=== PATIENT | male | born 1990 | race Caucasian/White ===

== ENCOUNTER 2020-01-30 22:24 | Emergency (ER) | payer OTHER ==
[2020-01-30] MEDS ORDERED: TORAdol 30 mg Injection IM ONE (22:38)
[2020-01-30] MEDS ORDERED: Rocephin 1000 MG INJ IM ONE (22:38)
--- NOTE | 2020-01-30 22:42 | ERPHSYRPT ---
- History of Present Illness Time Seen by Provider: 01/30/20 22:39 Source: patient Physician History: 29-year-old male came to the emergency room with the pain in his both molar tooth started yesterday. Patient recently moved into the town and has no dentist. His pain got worse so he came to the emergency room. He denies any other symptoms. Timing/Duration: today Severity: moderate Associated Symptoms: denies symptoms Allergies/Adverse Reactions: No Known Drug Allergies Allergy (Unverified 01/30/20 22:33) - Review of Systems Constitutional: No Symptoms Eyes: No Symptoms Ears, Nose, & Throat: Loose Teeth Respiratory: No Symptoms Cardiac: No Symptoms Abdominal/Gastrointestinal: No Symptoms Genitourinary Symptoms: No Symptoms Musculoskeletal: No Symptoms Skin: No Symptoms - Physical Exam General Appearance: no apparent distress Eye Exam: PERRL/EOMI Ears, Nose, Throat Exam: normal ENT inspection, other (swollen gums) Neck Exam: normal inspection Respiratory Exam: normal breath sounds Cardiovascular Exam: regular rate/rhythm - Course Nursing assessment & vital signs reviewed: Yes Ordered Tests: Medication Summary Discontinued Medications Generic Name Dose Route Start Last Admin Trade Name Valerio PRN Reason Stop Dose Admin Ceftriaxone Sodium 1,000 mg 01/30/20 22:38 Rocephin 1000 Mg Inj IM 01/30/20 22:39 STAT ONE Ketorolac Tromethamine 60 mg 01/30/20 22:38 Toradol 30 Mg Injection IM 01/30/20 22:39 STAT ONE - Progress Progress: unchanged, pain not gone completely Counseled pt/family regarding: diagnosis, need for follow-up (with dentist) - Departure Departure Disposition: Home Clinical Impression: Abscess, dental Condition: Stable Critical Care Time: No Referrals: ELENITA ROMAN II [Primary Care Provider] - Instructions: Tooth Abscess (DC) Prescriptions: Amoxicillin 500 mg Cap [Amoxil 500 mg] 500 mg PO TID #30 capsule Naproxen 375 mg [Naprosyn 375 mg] 375 mg PO Q8H #30 tablet
[2020-01-30] MEDS ORDERED: TORAdol 30 mg Injection ONE (22:48)
[2020-01-30] MEDS ORDERED: Rocephin 1000 MG INJ ONE (22:48)
[2020-01-30 23:27] VITALS: BP 124/86; PULSE 82; O2SAT 98
== END 2020-01-30 23:24 | disposition home or self-care (01) ==
LOC: ED 22:24
DX: L02.91 Cutaneous abscess, unspecified (principal)
CPT/HCPCS: 96372; 99284; J0696; J1885

== ENCOUNTER 2021-05-31 19:21 | Emergency (ER) | payer OTHER ==
[2021-05-31] MEDS ORDERED: TORAdol 30 mg Injection IV ONE (19:35)
[2021-05-31] MEDS ORDERED: TORAdol 30 mg Injection ONE (19:45)
[2021-05-31 19:52] LABS: Absolute Neutrophil Ct (ANC) 4.76 (1.4-6.9); Basophil (Absolute #) 0.04 (0-0.4); Eosinophil (Absolute #) 0.18 (0-0.5); Hematocrit 46.2 % (42-50); Hemoglobin 15.4 gm/dl (12.5-18.0); Lymphocyte (Absolute #) 3.19 (1.0-4.6); Lymphocytes % 35.2 % (24.0-44.0); Mean Cell Volume 87.2 fl (78-100); Mean Corpuscular Hemoglobin 29.1 pg (26-32); Mean Corpuscular Hgb Concent. 33.3 g/dl (32-36); Mean Platelet Volume 11.1 fl (7.5-11.0); Monocyte (Absolute #) 0.89 (0.0-1.3); Monocytes % 9.8 % (0.0-12.0); Neutrophil % 52.6 % (36.0-66.0); Platelet Count 292 K/mm3 (150-450); Red Cell Distribution Width 14.3 % (11.5-14.0); White Blood Count 9.1 K/mm3 (4.0-10.5)
[2021-05-31 19:56] LABS: Hyaline Casts 0-2 /LPF (0-2); Mucus SLIGHT /HPF (NEGATIVE)
[2021-05-31 19:57] LABS: Appearance CLEAR (CLEAR); Bilirubin NEGATIVE (NEGATIVE); Dipstick done @ ? MAIN LAB; Glucose NEGATIVE (NEGATIVE); Ketones NEGATIVE (NEGATIVE); Nitrite NEGATIVE (NEGATIVE); Protein,Urine Dip NEGATIVE (Negative); RBC TRACE-INTACT Ery/ul (0-5); Specific Gravity >=1.030 (1.005-1.025); Urobilinogen 0.2 mg/dL (0-1)
[2021-05-31 20:03] LABS: ALBUMIN 4.4 g/dL (3.5-5.0); ALKALINE PHOSPHATASE 91 U/L (38-126); ANION GAP 12.1 MEQ/L (5-15); BLOOD UREA NITROGEN 13 mg/dL (9-20); CHLORIDE 106 mmol/L (98-107); Calcium 8.5 mg/dL (8.4-10.2); Carbon Dioxide 28 mmol/L (22-30); Creatinine 1 0.88 mg/dL (0.66-1.25); EST GLOMERULAR FILTRATION RATE > 60.0 ML/MIN; Glucose 108 mg/dL (74-106); Potassium 3.9 mmol/L (3.5-5.1); SGOT/AST 30 U/L (17-59); SGPT/ALT 25 U/L (0-50); SODIUM 142 mmol/L (137-145); Total Protein 7.5 g/dL (6.3-8.2)
--- NOTE | 2021-05-31 20:49 | ERPHSYRPT ---
- History of Present Illness Time Seen by Provider: 05/31/21 19:35 Historian: patient Exam Limitations: no limitations Patient Subjective Stated Complaint: rt flank pain Triage Nursing Assessment: pt c/o rt flank pain which started today around 1600. Pt has vomited 3 times since pain began. Pt has chronic diarrhea. Abd lg, obese, soft with active bsx4 quad, nontender on palpation. Physician History: Patient is a 31-year-old male presents to our ED with acute onset of right flank pain that started approximately 1600. Pain described as an ache that is localized. No radiation. Pain was severe and patient vomited 3 times. Patient admits to history of chronic diarrhea. No trauma. No fever. Symptoms are moderate in intensity. No specific worsening improving factors. Patient denies obvious hematuria. Patient is otherwise healthy. He voices no other complaints or concerns at this time. Timing/Duration: today Activities at Onset: none Quality: aching Abdominal Pain Onset Location: flank (Right flank) Pain Radiation: no radiation Severity of Pain-Max: moderate Severity of Pain-Current: moderate Modifying Factors: Improves With: nothing Associated Symptoms: nausea, vomiting, No back, No diaphoresis, No fever/chills, No headache, No shortness of breath, No weakness Previous symptoms: no prior history Allergies/Adverse Reactions: No Known Drug Allergies Allergy (Verified 05/31/21 19:39) Hx Tetanus, Diphtheria Vaccination/Date Given: No (unknown) Hx Influenza Vaccination/Date Given: No Hx Pneumococcal Vaccination/Date Given: No Immunizations Up to Date: No Travel Risk - International Travel Have you traveled outside of the country in past 3 weeks: No - Coronavirus Screening Are you exhibiting any of the following symptoms?: Yes Symptoms: Vomiting/Diarrhea Close contact with a COVID-19 positive Pt in past 14-21 Days: No - Vaccine Status Have you recieved a Covid-19 vaccination: No - Review of Systems Constitutional: No Symptoms, No Fever, No Chills Eyes: No Symptoms Ears, Nose, & Throat: No Symptoms Respiratory: No Symptoms, No Cough, No Dyspnea Cardiac: No Symptoms, No Chest Pain, No Edema, No Syncope Abdominal/Gastrointestinal: No Symptoms, No Abdominal Pain, No Nausea, No Vomiting, No Diarrhea Genitourinary Symptoms: No Symptoms, No Dysuria Musculoskeletal: No Symptoms, No Back Pain, No Neck Pain Skin: No Symptoms, No Rash Neurological: No Symptoms, No Dizziness, No Focal Weakness, No Sensory Changes Psychological: No Symptoms Endocrine: No Symptoms Hematologic/Lymphatic: No Symptoms Immunological/Allergic: No Symptoms All Other Systems: Reviewed and Negative - Past Medical History Pertinent Past Medical History: Yes Endocrine Medical History: Hypothyroidism Musculoskeletal History: Fractures GI Medical History: GERD Other Medical History: Obesity - Past Surgical History Past Surgical History: Yes Neuro Surgical History: No Pertinent History Cardiac: No Pertinent History Respiratory: No Pertinent History Gastrointestinal: No Pertinent History Genitourinary: No Pertinent History Musculoskeletal: No Pertinent History Male Surgical History: No Pertinent History - Social History Smoking Status: Never smoker Exposure to second hand smoke: Yes Drug Use: marijuana Patient Lives Alone: No - Nursing Vital Signs Nursing Vital Signs: Initial Vital Signs Temperature 97.5 F 05/31/21 19:28 Pulse Rate 70 05/31/21 19:28 Respiratory Rate 22 05/31/21 19:28 Blood Pressure 144/79 05/31/21 19:28 O2 Sat by Pulse Oximetry 97 05/31/21 19:28 Pain Scale Pain Intensity 4 - Physical Exam General Appearance: no apparent distress, alert Eye Exam: PERRL/EOMI, eyes nml inspection Ears, Nose, Throat Exam: normal ENT inspection, TMs normal, pharynx normal, moist mucous membranes Neck Exam: normal inspection, non-tender, supple, full range of motion Respiratory Exam: normal breath sounds, lungs clear, airway intact, No respiratory distress Cardiovascular Exam: regular rate/rhythm, normal heart sounds, normal peripheral pulses Gastrointestinal/Abdomen Exam: soft, normal bowel sounds, No tenderness, No mass Male Genitalia Exam: No testicular tenderness Back Exam: normal inspection, normal range of motion, No CVA tenderness, No vertebral tenderness Extremity Exam: normal inspection, normal range of motion, pelvis stable Neurologic Exam: alert, oriented x 3, cooperative, normal mood/affect, nml cerebellar function, sensation nml, No motor deficits Skin Exam: normal color, warm, dry Lymphatic Exam: No adenopathy SpO2 Interpretation: normal SpO2: 97 O2 Delivery: Room Air - Course Nursing assessment & vital signs reviewed: Yes - CT Exams Abdomen/Pelvis CT Interpretation: Tele-radiologist Report (1 to 2 mm distal right ureteral stone just proximal to the UVJ without hydronephrosis or hydroureter) Ordered Tests: Active Orders 24 hr Category Date Time Status ABDOMEN AND PELVIS W/0 CONTRAS [CT] Stat Exams 05/31/21 19:33 Taken CBC W DIFF Stat Lab 05/31/21 19:48 Completed CMP Stat Lab 05/31/21 19:48 Completed Medication Summary Discontinued Medications Generic Name Dose Route Start Last Admin Trade Name Valerio PRN Reason Stop Dose Admin Ketorolac Tromethamine 30 mg 05/31/21 19:35 05/31/21 19:46 Ketorolac Tromethamine 30 Mg/Ml Inj IV 05/31/21 19:36 30 mg STAT ONE Administration Ketorolac Tromethamine Confirm 05/31/21 19:45 Ketorolac Tromethamine 30 Mg/Ml Inj Administered 05/31/21 19:46 Dose 30 mg .ROUTE .STK-MED ONE Lab/Rad Data: Laboratory Result Diagrams 05/31/21 19:48 05/31/21 19:48 Laboratory Results 05/31/21 05/31/21 05/31/21 Range/Units 19:48 19:48 19:30 WBC 9.1 (4.0-10.5) K/mm3 RBC 5.30 (4.1-5.6) M/mm3 Hgb 15.4 (12.5-18.0) gm/dl Hct 46.2 (42-50) % MCV 87.2 (78-100) fl MCH 29.1 (26-32) pg MCHC 33.3 (32-36) g/dl RDW 14.3 H (11.5-14.0) % Plt Count 292 (150-450) K/mm3 MPV 11.1 H (7.5-11.0) fl Gran % 52.6 (36.0-66.0) % Eos # (Auto) 0.18 (0-0.5) Absolute Lymphs (auto) 3.19 (1.0-4.6) Absolute Monos (auto) 0.89 (0.0-1.3) Lymphocytes % 35.2 (24.0-44.0) % Monocytes % 9.8 (0.0-12.0) % Eosinophils % 2.0 (0.00-5.0) % Basophils % 0.4 (0.0-0.4) % Absolute Granulocytes 4.76 (1.4-6.9) Basophils # 0.04 (0-0.4) Sodium 142 (137-145) mmol/L Potassium 3.9 (3.5-5.1) mmol/L Chloride 106 (98-107) mmol/L Carbon Dioxide 28 (22-30) mmol/L Anion Gap 12.1 (5-15) MEQ/L BUN 13 (9-20) mg/dL Creatinine 0.88 (0.66-1.25) mg/dL Estimated GFR > 60.0 ML/MIN Glucose 108 H (74-106) mg/dL Calcium 8.5 (8.4-10.2) mg/dL Total Bilirubin 0.80 (0.2-1.3) mg/dL AST 30 (17-59) U/L ALT 25 (0-50) U/L Alkaline Phosphatase 91 (38-126) U/L Serum Total Protein 7.5 (6.3-8.2) g/dL Albumin 4.4 (3.5-5.0) g/dL Urinalys Dipstick Clnc MAIN LAB Urine Color YELLOW (YELLOW) Urine Appearance CLEAR (CLEAR) Urine pH 6.0 (5-6) Ur Specific [place] >=1.030 (1.005-1.025) POC Urine Protein Conf NEGATIVE (Negative) Urine Ketones NEGATIVE (NEGATIVE) Urine Nitrite NEGATIVE (NEGATIVE) Urine Bilirubin NEGATIVE (NEGATIVE) Urine Urobilinogen 0.2 (0-1) mg/dL Urine Leukocytes NEGATIVE (NEGATIVE) Urine WBC (Auto) NONE (0-5) /HPF Urine RBC (Auto) 3-5 (0-2) /HPF U Hyaline Cast (Auto) 0-2 (0-2) /LPF U Epithel Cells (Auto) NONE (FEW) /HPF Urine Bacteria (Auto) NONE (NEGATIVE) /HPF Urine RBC TRACE-INTACT (0-5) Joe/ul Urine Mucus (Auto) SLIGHT (NEGATIVE) /HPF Ur Culture Indicated? NO Urine Glucose NEGATIVE (NEGATIVE) mg/dL - Progress Progress: improved Progress Note: Patient reassessed. Pain significantly improved. Patient is now comfortable. Patient rates his pain 4 out of 10 but states that he does not require any more pain medication. CAT scan reveals a right 1 to 2 mm distal kidney stone without hydronephrosis or hydroureter. Kidney function is within normal limits. Urinalysis reveals no urinary tract infection. No indication for further work- up at this time. Will discharge home. Patient given a referral to Dr. Llanos urology. Patient given a urine strainer as well. Patient advised to drink plenty of fluids. Patient will make an attempt to collect the stone as it passes through. A prescription for Toradol was forwarded to patient's pharmacy. A prescription for Flomax was forwarded to patient's pharmacy as well. Mother at bedside. They voiced no other complaints or concerns at this time. Patient states he is ready for discharge. Patient agrees to follow-up with his urologist within 48 hours for evaluation. Portions of this note were created with voice recognition technology. There may be grammatical, spelling, punctuation or sound alike errors 05/31/21 21:03 Counseled pt/family regarding: lab results, diagnosis, need for follow-up, rad results - Departure Departure Disposition: Home Clinical Impression: Ureterolithiasis, Renal colic on right side Condition: Stable Critical Care Time: No Referrals: ELENITA ROMAN II [Primary Care Provider] - Follow up/PCP as directed JUAN LLANOS [COURTESY STAFF] - Follow up/PCP as directed Instructions: Kidney Stones (DC) Additional Instructions: Discharge/Care Plan SIMONA BEACH was seen on 05/31/21 in the Emergency Room. The patient was counseled regarding Diagnosis,Lab results, Imaging studies, need for follow up and when to return to the Emergency Room. Prescriptions given: Discharge Note I have spoken with the patient and/or caregivers. I have explained the patient's condition, diagnosis and treatment plan based on the information available to me at this time. I have answered the patient's and/or caregiver's questions and addressed any concerns. The patient and/or caregivers have as good understanding of the patient's diagnosis, condition and treatment plan as can be expected at this point. The vital signs have been stable. The patient's condition is stable and appropriate for discharge from the emergency department. The patient will pursue further outpatient evaluation with the primary care physician or other designated or consulting physician as outlined in the discharge instructions. The patient and/or caregivers are agreeable to this plan of care and follow-up instructions have been explained in detail. The patient and/or caregivers have received these instruction. The patient/and or caregivers are aware that any significant change in condition or worsening of symptoms sh ould prompt an immediate return to this or the closest emergency department or call 911. Prescriptions: Tamsulosin HCl 0.4 mg [Flomax 0.4 MG] 0.4 mg PO DAILY 14 Days #14 cap
[2021-05-31 21:07] VITALS: BP 169/59
[2021-05-31 21:10] VITALS: PULSE 78; O2SAT 98
--- NOTE | 2021-06-01 08:48 | XRAY ---
Indication: Right flank/right lower quadrant pain. Nausea and vomiting. Nephrolithiasis. Multiple contiguous axial images obtained through the abdomen and pelvis without contrast using renal stone protocol. Comparison: None Lung bases clear. Heart not enlarged. Distal right ureter demonstrates 1-2 mm calculus just proximal to UVJ with minimal hydronephrosis. No free fluid/air. Noncontrasted stomach and bowel loops appear nonobstructed with normal appendix. Incidental 22.5 cm fatty hepatomegaly and 16.6 cm splenomegaly. Remaining liver, gallbladder, pancreas, spleen, adrenal glands, kidneys, ureters, bladder, and aorta are unremarkable for noncontrast exam. Osseous structures intact. Impression: 1. 1-2 mm distal right ureter calculus as detailed. 2. Fatty hepatomegaly and splenomegaly.
== END 2021-05-31 21:07 | disposition home or self-care (01) ==
LOC: ED 19:21
DX: N20.1 Calculus of ureter (principal); N20.0 Calculus of kidney; R10.9 Unspecified abdominal pain; R11.2 Nausea with vomiting, unspecified; K21.9 Gastro-esophageal reflux disease without esophagitis
CPT/HCPCS: 36000; 36415; 74176; 80053; 81015; 85025; 96374; 99284; J1885

== ENCOUNTER 2024-01-06 02:27 | Emergency (ER) | payer OTHER ==
[2024-01-06 02:44] VITALS: RESP 20; TEMP 97.2
--- NOTE | 2024-01-06 02:44 | ERPHSYRPT ---
- History of Present Illness Source: patient Exam Limitations: no limitations Physician History: Patient had injury to his right knee. Is a twisting injury. He has pain in the lateral aspect around the lateral collateral ligament on the right. No obvious deformities. He is able to ambulate. It happened about 12 to 15 hours ago. The pain is did not get any better. He was concerned about work as well 2. He is been rest ice and elevate it is helping somewhat. Pain is moderate to severe at walking and standing. It is mild to moderate at rest. Movement and palpation make the symptoms worse. Rest ice and elevate makes it better. Allergies/Adverse Reactions: No Known Drug Allergies Allergy (Verified 05/31/21 19:39) Hx Tetanus, Diphtheria Vaccination/Date Given: No (unknown) Hx Influenza Vaccination/Date Given: No Hx Pneumococcal Vaccination/Date Given: No - Review of Systems Constitutional: No Symptoms Eyes: No Symptoms Ears, Nose, & Throat: No Symptoms Skin: No Symptoms Neurological: No Symptoms All Other Systems: Reviewed and Negative - Past Medical History Pertinent Past Medical History: Yes Neurological History: No Pertinent History Cardiac History: No Pertinent History Respiratory History: No Pertinent History Endocrine Medical History: Hypothyroidism Musculoskeletal History: Fractures GI Medical History: GERD Other Medical History: Obesity - Past Surgical History Past Surgical History: Yes Neuro Surgical History: No Pertinent History Cardiac: No Pertinent History Respiratory: No Pertinent History Gastrointestinal: No Pertinent History Genitourinary: No Pertinent History Musculoskeletal: No Pertinent History Male Surgical History: No Pertinent History - Social History Smoking Status: Never smoker Exposure to second hand smoke: Yes Drug Use: marijuana Patient Lives Alone: No - Nursing Vital Signs Nursing Vital Signs: Initial Vital Signs Temperature 97.2 F 01/06/24 02:41 Pulse Rate 68 01/06/24 02:41 Respiratory Rate 20 01/06/24 02:41 Blood Pressure 130/85 01/06/24 02:41 O2 Sat by Pulse Oximetry 99 01/06/24 02:41 Pain Scale Pain Intensity 5 - Physical Exam General Appearance: no apparent distress Hips Exam: bilateral: non-tender, normal inspection, normal range of motion Legs Exam: bilateral leg: non-tender, normal inspection, normal range of motion Knees Exam: right knee: pain, soft tissue tenderness (Right collateral lateral ligament) Ankle Exam: bilateral ankle: non-tender, normal inspection, normal range of motion, no evidence of injury Neuro/Tendon Exam: normal sensation, normal motor functions, normal tendon functions Mental Status Exam: alert, oriented x 3 Skin Exam: normal color, warm SpO2: 99 - Course Nursing assessment & vital signs reviewed: Yes Ordered Tests: Active Orders 24 hr Category Date Time Status KNEE (3 VIEWS) Stat Exams 01/06/24 02:44 Ordered Lab/Rad Data: No acute findings on the knee x-ray. - Progress Progress Note: Patient was stable throughout stay. His x-ray was negative for fracture. He could have some soft tissue damage. I am going to have him rest ice elevate. He does not want crutches. I went to give him Advil, and [place] to take For pain.A work note was given as well 2. 01/06/24 02:47 Medical Desision Making - Diagnostic Testing Radiological Interpretation: Interpreted by me - Risk of complications Minimal Risk: Minimal risk of morbidity - Departure Departure Disposition: Home Clinical Impression: Strain of right knee Condition: Stable Critical Care Time: No Referrals: ELENITA ROMAN II [Primary Care Provider] - Follow up/PCP as directed Instructions: Knee Sprain (DC) Additional Instructions: Patient is to be off work through 09 January. He may return sooner if symptoms improve. Prescriptions: Hydrocodone/Acetaminophen [Hydrocodone-Acetamin 5-325 mg] 1 tab PO Q6HPRN PRN #14 tablet MDD 4 PRN Reason: Pain Ibuprofen 600 mg [Motrin 600 mg] 600 mg PO QID PRN #30 tablet
[2024-01-06 03:07] VITALS: PULSE 75
[2024-01-06 04:02] VITALS: BP 108/82; O2SAT 96
--- NOTE | 2024-01-06 08:41 | XRAY ---
Indication: Pain following fall. Comparison: None 4 view right knee obtained. No bony, articular, or soft tissue abnormalities.
== END 2024-01-06 04:23 | disposition home or self-care (01) ==
LOC: ED 02:27
DX: S83.91XA Sprain of unspecified site of right knee, initial encounter (principal); X50.0XXA Overexertion from strenuous movement or load, initial encounter; Z79.891 Long term (current) use of opiate analgesic; Z79.899 Other long term (current) drug therapy
CPT/HCPCS: 73562; 99282

== ENCOUNTER 2024-07-01 21:38 | Emergency (ER) | payer OTHER ==
[2024-07-01 22:14] VITALS: TEMP 97.8; O2SAT 96
--- NOTE | 2024-07-01 22:53 | ERPHSYRPT ---
- History of Present Illness Time Seen by Provider: 07/01/24 22:54 Source: patient Exam Limitations: no limitations Patient Subjective Stated Complaint: c/o splinter in right foot Triage Nursing Assessment: patient brought into ED by mother with c/o splinter in bottom of right foot. Patient states he was laying in bed and caught a piece of woof that was sticking out from the trimming and the wood got stuck in his foot. patient tried to remove it at home and a piece broke off into his foot. splinter appears to be 0.5cm long benath the skin. no bleeding or redness present. Patient's skin w/n/d, afebrile, hypertensive, gait steady, patient mendoza sn't appear to be in any distress. Physician History: 34-year-old male presents to our ED for evaluation of a foreign body to his right foot stain today.. Patient states a piece of wood broke off into his foot. Patient tried to pull it out but was only able to remove part of it. The other part remained in his foot. Patient admits to a foreign body sensation. Portions of this note were created with voice recognition technology. There may be grammatical, spelling, punctuation or sound alike errors Timing/Duration: today Severity: moderate Modifying Factors: Improves With: nothing Associated Symptoms: denies symptoms Allergies/Adverse Reactions: No Known Drug Allergies Allergy (Verified 07/01/24 22:06) Hx Tetanus, Diphtheria Vaccination/Date Given: No (unknown) Hx Influenza Vaccination/Date Given: No Hx Pneumococcal Vaccination/Date Given: No Travel Risk - International Travel Have you traveled outside of the country in past 3 weeks: No - Emerging Infectious Disease Are you exhibiting symptoms associated with any current EIDs: No - Review of Systems Constitutional: No Symptoms, No Fever, No Chills Eyes: No Symptoms Ears, Nose, & Throat: No Symptoms Respiratory: No Symptoms, No Cough, No Dyspnea Cardiac: No Symptoms, No Chest Pain, No Edema, No Syncope Abdominal/Gastrointestinal: No Symptoms, No Abdominal Pain, No Nausea, No Vomiting, No Diarrhea Genitourinary Symptoms: No Symptoms, No Dysuria Musculoskeletal: No Symptoms, No Back Pain, No Neck Pain Skin: No Symptoms, No Rash Neurological: No Symptoms, No Dizziness, No Focal Weakness, No Sensory Changes Psychological: No Symptoms Endocrine: No Symptoms Hematologic/Lymphatic: No Symptoms Immunological/Allergic: No Symptoms All Other Systems: Reviewed and Negative - Past Medical History Pertinent Past Medical History: Yes Neurological History: No Pertinent History Cardiac History: No Pertinent History Respiratory History: No Pertinent History Endocrine Medical History: Hypothyroidism Musculoskeletal History: Fractures GI Medical History: GERD Other Medical History: Obesity - Past Surgical History Past Surgical History: Yes Neuro Surgical History: No Pertinent History Cardiac: No Pertinent History Respiratory: No Pertinent History Gastrointestinal: No Pertinent History Genitourinary: No Pertinent History Musculoskeletal: No Pertinent History Male Surgical History: No Pertinent History - Social History Smoking Status: Never smoker Exposure to second hand smoke: No Drug Use: marijuana - Social Determinants of Health Will the patient participate in the screening: Yes Do you worry about a steady place to live?: No Do you have any problems with any of the following?: No known problems In the past 12 months,have you had to go without utilities?: No Transportation Issues: No Has anyone in your support network made you feel unsafe?: No Have you or anyone in your house had to go w/o enough food: No - Nursing Vital Signs Nursing Vital Signs: Initial Vital Signs Temperature 97.8 F 07/01/24 22:07 Pulse Rate 73 07/01/24 22:07 Respiratory Rate 22 07/01/24 22:07 Blood Pressure 167/92 07/01/24 22:07 O2 Sat by Pulse Oximetry 96 07/01/24 22:07 Pain Scale Pain Intensity 4 - Physical Exam General Appearance: no apparent distress, alert Eye Exam: PERRL/EOMI, eyes nml inspection Neck Exam: normal inspection, full range of motion Respiratory Exam: normal breath sounds, airway intact, No respiratory distress Cardiovascular Exam: normal peripheral pulses Gastrointestinal/Abdomen Exam: No tenderness, No mass Back Exam: normal inspection, normal range of motion, No CVA tenderness, No vertebral tenderness Extremity Exam: normal inspection, normal range of motion, pelvis stable, other (0.5 cm foreign body appears to be wood at the plantar aspect of the right forefoot to the right of midline. The involved extremities neurovascular tact distally compartments are soft cap refill less than 2 seconds.) Neurologic Exam: alert, oriented x 3, cooperative, normal mood/affect, sensation nml, No motor deficits Skin Exam: normal color, warm, dry, No rash Lymphatic Exam: No adenopathy SpO2 Interpretation: normal SpO2: 96 O2 Delivery: Room Air - Course Nursing assessment & vital signs reviewed: Yes Ordered Tests: Medication Summary Discontinued Medications Generic Name Dose Route Start Last Admin Trade Name Valerio PRN Reason Stop Dose Admin Ketorolac Tromethamine 60 mg 07/01/24 22:50 Ketorolac Tromethamine 30 Mg/Ml Inj IM 07/01/24 22:51 STAT ONE - Progress Progress: improved Progress Note: 34-year-old male presents to emergency department for evaluation of a foreign body right foot. The foreign body is too deep to access. Patient will require podiatry consultation for further evaluation and treatment. Patient given a dose of Toradol for pain. A flex prophylactic antibiotic forwarded to patient's pharmacy. Orthopedic shoe and bilateral axillary crutches provided. It is difficult to see the location of the foreign body. We localized it and demarcated the area for easy visualization by the podiatry service. No indication for further workup at this time. Will discharge home. Patient will follow-up in the orthopedic clinic tomorrow. Patient voices no other complaints or concerns at this time. Portions of this note were created with voice recognition technology. There may be grammatical, spelling, punctuation or sound alike errors Complexity of problem addressed is moderate acute complicated. No critical care time. Complexity of data reviewed and analyzed as none. No specialized testing ordered. Diagnosis made based on history and physical exam. Risk of complication and or risk of morbidity/mortality of patient management is low. Vital stable. Time spent to discharge patient is approximately 10 minutes. Plan of care established for shared decision making. No social determinants of health present to impede follow-up. Portions of this note were created with voice recognition technology. There may be grammatical, spelling, punctuation or sound alike errors 07/01/24 22:59 Counseled pt/family regarding: diagnosis, need for follow-up - Departure Departure Disposition: Home Clinical Impression: Foreign body in foot Condition: Stable Critical Care Time: No Referrals: ELENITA ROMAN II [Primary Care Provider, [facility]] - Follow up/PCP as directed Additional Instructions: Discharge/Care Plan SIMONA [place] was seen on 07/01/24 in the Emergency Room. The patient was counseled regarding Diagnosis,Lab results, Imaging studies, need for follow up and when to return to the Emergency Room. Prescriptions given: Discharge Note I have spoken with the patient and/or caregivers. I have explained the patient's condition, diagnosis and treatment plan based on the information available to me at this time. I have answered the patient's and/or caregiver's questions and addressed any concerns. The patient and/or caregivers have as good understanding of the patient's diagnosis, condition and treatment plan as can be expected at this point. The vital signs have been stable. The patient's condition is stable and appropriate for discharge from the emergency department. The patient will pursue further outpatient evaluation with the primary care physician or other designated or consulting physician as outlined in the discharge instructions. The patient and/or caregivers are agreeable to this plan of care and follow-up instructions have been explained in detail. The patient and/or caregivers have received these instruction. The patient/and or caregivers are aware that any significant change in condition or worsening of symptoms should prompt an immediate return to this or the closest emergency department or call 911. Prescriptions: Cephalexin Mh 500 mg [Keflex 500 mg] 500 mg PO TID #21 cap Ketorolac Trometh 10 mg Tab [TORAdol 10 MG TABLET] 10 mg PO TID 5 Days #15 tablet Outpatient Orders: Ortho Referral Time Frame: 1 Day, Facility: [facility], Location: [facility]
[2024-07-01] MEDS ORDERED: TORAdol 30 mg Injection ONE (22:56)
[2024-07-01] MEDS: TORAdol 30 mg Injection IM ONE (22:58)
[2024-07-01 23:17] VITALS: BP 120/95; PULSE 73; RESP 18
== END 2024-07-01 23:19 | disposition home or self-care (01) ==
LOC: ED 21:38
DX: S91.341A Puncture wound with foreign body, right foot, initial encounter (principal); W45.8XXA Other foreign body or object entering through skin, initial encounter; Y92.003 Bedroom of unspecified non-institutional (private) residence as the place of occurrence of the external cause; Z79.899 Other long term (current) drug therapy
CPT/HCPCS: 96372; 99282; 99283; J1885